=== PATIENT | female | born 1950 | race Caucasian/White ===

== ENCOUNTER 2021-12-15 10:59 | Outpatient (RCR) | payer MEDICARE ==
[~2021-12-15 10:59] MED LIST: ACYCLOVIR200 MG PO; ALPRAZOLAM2 MG PO; CREON DR 6,000 U1 EA PO; CYCLOBENZAPRINE10 MG PO; SERTRALINE HCL100 MG PO; ULTRAM50 MG PO; Z.0.LISINOPRIL10 MG PO; Z.0.SYNTHROID88 MCG PO; [UNRECOGNIZED DRUG - OTHER] PO
== END 2021-12-16 ==
LOC: PT 10:59
PROVIDERS: ATTEND Specialist
DX: M16.12 Unilateral primary osteoarthritis, left hip (principal); M25.552 Pain in left hip; M25.652 Stiffness of left hip, not elsewhere classified; M62.81 Muscle weakness (generalized); R29.3 Abnormal posture; Z91.81 History of falling

== ENCOUNTER 2022-01-13 12:54 | Outpatient (RCR) | payer MEDICARE | END 2022-01-15 | LOC: PT 12:54 | PROVIDERS: ATTEND Specialist | DX: M16.12 Unilateral primary osteoarthritis, left hip (principal); M62.81 Muscle weakness (generalized); M25.552 Pain in left hip; M25.652 Stiffness of left hip, not elsewhere classified; R29.3 Abnormal posture; Z91.81 History of falling | CPT/HCPCS: 97139 ==

== ENCOUNTER 2022-01-18 12:59 | Outpatient (RCR) | payer MEDICARE | END 2022-02-15 | LOC: PT 12:59 | PROVIDERS: ATTEND Specialist | DX: M16.12 Unilateral primary osteoarthritis, left hip (principal); M25.552 Pain in left hip; M25.652 Stiffness of left hip, not elsewhere classified; M62.81 Muscle weakness (generalized); Z91.81 History of falling; R29.3 Abnormal posture ==

== ENCOUNTER 2022-03-14 07:01 | Observation (INO) | payer MEDICARE ==
[2022-03-11 09:46] LABS: BASOPHILS # (AUTO) 0.1 (0.0-0.1); BASOPHILS % 0.4 % (0.0-1.0); EOSINOPHILS # (AUTO) 0.5 (0.0-0.4); EOSINOPHILS % 4.1 % (0.0-6.0); HEMATOCRIT 37.5 % (34.2-44.1); HEMOGLOBIN 11.7 g/dL (12.0-16.0); LYMPHOCYTES # (AUTO) 4.3 (1.0-3.2); LYMPHOCYTES % 38.2 % (18.0-39.1); MEAN CORPUSCULAR HGB CONC 31.2 g/dL (31-35); MEAN CORPUSCULAR VOLUME 96.2 fL (81-99); MONOCYTES # (AUTO) 0.6 (0.2-0.8); MONOCYTES % 5.7 % (4.4-11.3); NEUTROPHILS # (AUTO) 5.7 (2.1-6.9); NEUTROPHILS % 51.4 % (38.7-80.0); PLATELET COUNT 268 x10e3/uL (140-360)
[2022-03-11 10:05] LABS: ANION GAP 11.5 mmol/L (8-16); CALCIUM 8.9 mg/dL (8.4-10.2); CREATININE, SERUM 0.87 mg/dL (0.57-1.11); POTASSIUM 4.5 mmol/L (3.5-5.1)
[~2022-03-14] VITALS: Ht 157.5 cm; Wt 88.5 kg
[~2022-03-14 07:01] MED LIST changes: +ALIGN4 MG PO; +CALTRATE 600 +1 EAC1 PO; +CELECOXIB 200 MG CAP ONE; +DEXAMETHASONE SOD PHOS 10 MG/1 ML VIAL ONE; +GABAPENTIN 300 MG CAP ONE; +ROPIVACAINE 246.25 MG, EPINEPHRINE HCL 1:1000 1ML 0.5 MG, CLONIDINE HCL 0.08 MG, KETORO... INJ ONE; +ZENPEP DR 40,01 EACH PO
[2022-03-14] MEDS ORDERED: TRANEXAMIC ACID 20 ML ONE (07:10)
[2022-03-14] MEDS ORDERED: SODIUM CHLORIDE 0.9% 500ML 500 ML ONE ×2 (07:10→07:31)
[2022-03-14] MEDS ORDERED: Vancomycin IV 1,000 MG ONE (07:10)
[2022-03-14] MEDS ORDERED: DIPHENHYDRAMINE HCL INJ 50 MG/ML VIAL IV PRN (09:30)
[2022-03-14] MEDS ORDERED: ACETAMINOPHEN 650 MG SUPP PR PRN (09:30)
[2022-03-14] MEDS ORDERED: ONDANSETRON HCL INJ 2MG/ML 2ML 2 MG/ML VIAL IV PRN (09:30)
[2022-03-14] MEDS ORDERED: KETOROLAC TROMETHAMINE 30 MG/ML VIAL IV PRN (09:30)
[2022-03-14] MEDS ORDERED: ZOLPIDEM TARTRATE 5 MG TAB PO PRN (09:30)
[2022-03-14] MEDS ORDERED: DOCUSATE SODIUM 100 MG CAP PO PRN (09:30)
[2022-03-14] MEDS: MEPERIDINE HCL INJ 25 MG/ML VIAL ONE ×2 (10:05→11:15)
[2022-03-14] MEDS ORDERED: SODIUM CHLORIDE 0.9% 1000ML 1,000 ML IV SCH (10:30)
[2022-03-14 10:57] VITALS: BP 130/49
[2022-03-14 10:58] VITALS: BP 130/49
[2022-03-14] MEDS: HYDROCODONE/APAP 5MG-325MG TAB PO PRN ×2 (11:57→16:15)
[2022-03-14] MEDS ORDERED: PROPOFOL IV EMULSION 10 MG/ML 20 ML VIAL ONE (12:36)
[2022-03-14] MEDS ORDERED: ONDANSETRON HCL INJ 2MG/ML 2ML 2 MG/ML VIAL ONE (12:36)
[2022-03-14] MEDS ORDERED: EPHEDRINE SULFATE INJ 50 MG/ML VIAL ONE (12:36)
[2022-03-14] MEDS ORDERED: ACETAMINOPHEN 1000 MG/100 ML IV ONE (12:36)
[2022-03-14] MEDS ORDERED: POVIDONE IODINE 0.05% 0.05 % ML PO ONE (12:36)
[2022-03-14] MEDS ORDERED: PHENYLEPHRINE HCL 1% 10 MG/ML VIAL ONE (12:36)
[2022-03-14] MEDS ORDERED: MIDAZOLAM HCL 2 MG/2 ML VIAL ONE (14:00)
[2022-03-14] MEDS ORDERED: FENTANYL CITRATE/PF 100MCG/2 ML INJ ONE (14:00)
[2022-03-14 16:30] VITALS: BP 138/59
[2022-03-14] MEDS ORDERED: CELECOXIB 200 MG CAP PO SCH (17:00)
[2022-03-14] MEDS ORDERED: ASPIRIN 325 MG TAB PO SCH (17:00)
[2022-03-15] MEDS ORDERED: ACETAMINOPHEN 1000 MG/100 ML IV PRN (09:30)
== END 2022-03-14 18:17 | disposition home or self-care (01) ==
LOC: OR 07:01 → PACU V 09:32 → MED/SURG 10:36
PROVIDERS: ADMIT Specialist; ATTEND Specialist
DX: M16.12 Unilateral primary osteoarthritis, left hip (principal); Z01.818 Encounter for other preprocedural examination; E11.9 Type 2 diabetes mellitus without complications; E78.00 Pure hypercholesterolemia, unspecified; Z96.653 Presence of artificial knee joint, bilateral; M17.0 Bilateral primary osteoarthritis of knee; Z20.822 Contact with and (suspected) exposure to COVID-19
CPT/HCPCS: 0223U; 27130; 36415 ×2; 71046; 72170; 80048; 82948; 85025; 86850; 86900; 86920; 93005; 94799; 97110; 97116 ×2; 97139; 97161; 97530 ×2; C1713 ×2; C1776 ×2; G0378; J0131; J0171; J0690; J1100; J1885; J2175; J2250; J2370; J2405; J2704; J2795; J3010; J3370; J7030; J7040

== ENCOUNTER → 2022-04-22 | Outpatient (CLI) | payer MEDICARE ==
[~2022-04-22] MED LIST changes: -CELECOXIB 200 MG CAP ONE; -DEXAMETHASONE SOD PHOS 10 MG/1 ML VIAL ONE; -GABAPENTIN 300 MG CAP ONE; -ROPIVACAINE 246.25 MG, EPINEPHRINE HCL 1:1000 1ML 0.5 MG, CLONIDINE HCL 0.08 MG, KETORO... INJ ONE
== END ==
LOC: MRI 09:28
PROVIDERS: ATTEND Physician Assistant
DX: M43.16 Spondylolisthesis, lumbar region (principal); M54.16 Radiculopathy, lumbar region
CPT/HCPCS: 72148

== ENCOUNTER 2024-02-19 10:40 | Outpatient (RCR) | payer MEDICARE ==
[~2024-02-19 10:40] MED LIST changes: +LIPITOR10 MG PO; +METOPROLOL SUCC25 MG PO; +NAPROSYN500 MG PO
== END 2024-03-17 ==
LOC: PT 10:40
PROVIDERS: ATTEND Specialist
DX: R53.81 Other malaise (principal); M62.81 Muscle weakness (generalized); W18.30XD Fall on same level, unspecified, subsequent encounter; R26.89 Other abnormalities of gait and mobility